=== PATIENT | female | born 1985 | race African-American/Black ===

== ENCOUNTER 2016-08-11 13:36 | Emergency (ER) | payer OTHER ==
[~2016-08-11] VITALS: Ht 175.3 cm; Wt 81.6 kg
[2016-08-11 13:36] VITALS: BP 137/101
[2016-08-11 17:31] LABS: APPEARANCE,URINE Clear (CLEAR); BILIRUBIN,URINE Negative (NEGATIVE); BLOOD, URINE Negative Ery/uL (NEGATIVE); COLOR,URINE Yellow (YELLOW); KETONES,URINE Negative (NEGATIVE); LEUKOCYTE ESTERASE ,URINE Negative (NEGATIVE); NITRITE, URINE Negative (NEGATIVE); PH,URINE 8.5 (5.0-8.0); PROTEIN,URINE 30 mg/dl (NEGATIVE); UGLUCOSE Negative (NEGATIVE)
[2016-08-11 17:33] LABS: PREGNANCY TEST URINE QUAL NEGATIVE (NEGATIVE)
[2016-08-11 17:50] LABS: ADD URINE CULTURE NO; BACTERIA,URINE None seen /HPF (None Seen); RBC,URINE NONE SEEN /HPF (0-2); SQUAMOUS EPITHELIAL CELL,UR Rare /HPF (None Seen); WBC,URINE NONE SEEN /HPF (0-3)
== END 2016-08-11 18:10 | disposition home or self-care (01) ==
LOC: ER 13:41
DX: N83.201 Unspecified ovarian cyst, right side (principal)
CPT/HCPCS: 76856; 81001; 84703; 99285; A4606; Z7610; 81000-TC

== ENCOUNTER 2017-01-25 10:35 | Emergency (ER) | payer OTHER ==
[~2017-01-25] VITALS: Ht 175.3 cm; Wt 81.6 kg
--- NOTE | 2017-01-25 10:53 | NUR ---
PT TO ED ROOM 08. PELVIC CRAMPING X 6 MONTHS, WORSENING YESTERDAY. A.A.O. NAD. VS WNL. SIDE RAISL UP. HOB ELEVATED. URINE SAMPLE COLLECTED FROM PATIENT.
--- NOTE | 2017-01-25 11:27 | NUR ---
US AT BEDSIDE
--- NOTE | 2017-01-25 12:07 | NUR ---
Patient is resting comfortably in bed. VSS.
--- NOTE | 2017-01-25 12:33 | NUR ---
Patient discharged to home in stable condition. Written and verbal after care instructions given. Patient verbalizes understanding of instruction. Pt is ambulatory with a steady gait.
[2017-01-25 12:35] VITALS: BP 134/75
== END 2017-01-25 12:36 | disposition home or self-care (01) ==
LOC: ER 10:43
DX: R10.2 Pelvic and perineal pain (principal)
CPT/HCPCS: 76856-TC; 84703-TC; A4606; Z7610

== ENCOUNTER 2017-11-24 14:58 | Emergency (ER) | payer OTHER ==
[~2017-11-24] VITALS: Ht 175.3 cm; Wt 77.1 kg
--- NOTE | 2017-11-24 15:25 | NUR ---
PATIENT TO ED DT FLANK PAIN AND DYSURIA X 1 WEEK. PATIENT IS AWAKE AND ALERT. NOT IN DISTRESS. AFEBRILE. VSS
[2017-11-24 15:42] LABS: APPEARANCE,URINE Slightly Cloudy (CLEAR); BILIRUBIN,URINE SMALL (NEGATIVE); BLOOD, URINE Large Ery/uL (NEGATIVE); KETONES,URINE Negative (NEGATIVE); LEUKOCYTE ESTERASE ,URINE Small (NEGATIVE); NITRITE, URINE Negative (NEGATIVE); PROTEIN,URINE >=300 mg/dl (NEGATIVE); UGLUCOSE Negative (NEGATIVE); UROBILINOGEN,URINE 0.2 EU/dL (0.2)
--- NOTE | 2017-11-24 15:42 | NUR ---
URINE SAMPLE SENT TO LAB
[2017-11-24 15:44] LABS: COLOR,URINE Dark Yellow (YELLOW)
[2017-11-24 15:52] LABS: BACTERIA,URINE Few /HPF (None Seen); RBC,URINE 50-80 /HPF (0-2); SQUAMOUS EPITHELIAL CELL,UR Few /HPF (None Seen); WBC,URINE 20-50 /HPF (0-3)
[2017-11-24] MEDS ORDERED: ONDANSETRON HCL/PF 4 MG/2 ML VIAL ONE (15:57)
[2017-11-24] MEDS ORDERED: MORPHINE SULFATE INJ 4 MG/ML DISP.SYRIN ONE (15:57)
[2017-11-24] MEDS ORDERED: IV NS 0.9% 1,000 ML BAG IV ONE (16:00)
[2017-11-24] MEDS ORDERED: MORPHINE SULFATE INJ 2 MG/ML DISP.SYRIN IV ONE (16:00)
[2017-11-24] MEDS ORDERED: ONDANSETRON HCL/PF 4 MG/2 ML VIAL IVP ONE (16:00)
[2017-11-24 16:15] LABS: BASOPHILS % (AUTO) 0.9 % (0.0-2.0); HEMATOCRIT 36 % (33-45); HEMOGLOBIN 12.8 g/dL (11.5-14.8); LYMPHOCYTES # (AUTO) 1.8 /CMM (0.8-4.8); LYMPHOCYTES % (AUTO) 33.7 % (20.0-44.0); MEAN CORPUSCULAR HEMOGLOBIN 34 PG (26.0-33.0); MEAN CORPUSCULAR HGB CONC 35 g/dl (31.0-36.0); MEAN CORPUSCULAR VOLUME 96 fL (82-100); MONOCYTES # (AUTO) 0.2 /CMM (0.1-1.30); MONOCYTES % (AUTO) 4.5 % (2.0-12.0); NEUTROPHILS # (AUTO) 3.1 /CMM (1.8-8.9); NEUTROPHILS % (AUTO) 58.9 % (43.0-81.0); PLATELET COUNT (AUTO) 299 /CMM (150-450); RDW COEFFICIENT OF VARIATION 11.5 (11.5-15.0); RED BLOOD CELL COUNT(AUTO) 3.77 MIL/uL (4.0-5.2); WHITE BLOOD COUNT (AUTO) 5.2 K/uL (4.3-11.0)
[2017-11-24 16:27] LABS: CALCIUM, SERUM 9.1 mg/dL (8.5-10.1); CREATININE 0.9 mg/dL (0.6-1.3); POTASSIUM 3.6 mmol/L (3.5-5.1)
[2017-11-24] MEDS ORDERED: CEFTRIAXONE 1GM BAG (ER ONLY) 1 GM/50 ML PIGGYBACK IV ONE (17:30)
[2017-11-24 17:45] VITALS: BP 136/90
--- NOTE | 2017-11-24 18:11 | NUR ---
Patient discharged to home in stable condition. Written and verbal after care instructions given. Patient verbalizes understanding of instruction.IV removed. Catheter intact and site benign. Pressure and 4x4 applied to site. No bleeding noted.
== END 2017-11-24 18:11 | disposition home or self-care (01) ==
LOC: ER 14:59
DX: N12 Tubulo-interstitial nephritis, not specified as acute or chronic (principal); F10.10 Alcohol abuse, uncomplicated; Y90.9 Presence of alcohol in blood, level not specified
CPT/HCPCS: 36415; 80048-TC; 81000-TC; 84703-TC; 85025-TC; 87086-TC; A4606; J0696; J2270; J2405; Z7610

== ENCOUNTER 2018-02-10 17:59 | Emergency (ER) | payer OTHER ==
[~2018-02-10] VITALS: Ht 175.3 cm; Wt 85.7 kg
[2018-02-10 17:59] VITALS: BP 143/95
--- NOTE | 2018-02-10 19:26 | NUR ---
CALLED PT'S NAME THREE TIMES, NO RESPONSE IN THE WAITING ROOM. PT LEFT BEFORE TRIAGE
[2018-02-10 20:36] LABS: BASOPHILS % (AUTO) 0.7 % (0.0-2.0); EOSINOPHILS % (AUTO) 2.6 % (0.0-6.0); HEMATOCRIT 38 % (33-45); HEMOGLOBIN 13.1 g/dL (11.5-14.8); LYMPHOCYTES # (AUTO) 2.6 /CMM (0.8-4.8); LYMPHOCYTES % (AUTO) 51.3 % (20.0-44.0); MEAN CORPUSCULAR HGB CONC 35 g/dl (31.0-36.0); MEAN CORPUSCULAR VOLUME 93 fL (82-100); MONOCYTES # (AUTO) 0.3 /CMM (0.1-1.30); MONOCYTES % (AUTO) 6.9 % (2.0-12.0); NEUTROPHILS # (AUTO) 1.9 /CMM (1.8-8.9); NEUTROPHILS % (AUTO) 38.5 % (43.0-81.0); PLATELET COUNT (AUTO) 342 /CMM (150-450); RDW COEFFICIENT OF VARIATION 11.6 (11.5-15.0); RED BLOOD CELL COUNT(AUTO) 4.06 MIL/uL (4.0-5.2); WHITE BLOOD COUNT (AUTO) 4.9 K/uL (4.3-11.0)
[2018-02-10 20:49] LABS: INR 0.91 (0.85-1.15)
== END 2018-02-10 21:18 | disposition home or self-care (01) ==
LOC: ER 18:02
DX: S70.12XA Contusion of left thigh, initial encounter (principal); X58.XXXA Exposure to other specified factors, initial encounter; Y93.89 Activity, other specified; Y92.89 Other specified places as the place of occurrence of the external cause; Y99.8 Other external cause status
CPT/HCPCS: 36415; 85025; 85730; 99284; A4606; Z7610

== ENCOUNTER 2018-05-21 15:37 | Emergency (ER) | payer OTHER ==
[~2018-05-21] VITALS: Ht 175.3 cm; Wt 80.3 kg
[2018-05-21 16:06] VITALS: BP 140/100
[2018-05-21] MEDS ORDERED: KETOROLAC TROMETHAMINE INJ 30 MG/ML VIAL ONE (16:25)
[2018-05-21] MEDS ORDERED: KETOROLAC TROMETHAMINE INJ 60 MG/2 ML VIAL IM ONE (16:30)
== END 2018-05-21 16:46 | disposition home or self-care (01) ==
LOC: ER 15:41
DX: S46.812A Strain of other muscles, fascia and tendons at shoulder and upper arm level, left arm, initial encounter (principal); W22.8XXA Striking against or struck by other objects, initial encounter; Y93.D9 Activity, other involving arts and handcrafts; Y92.89 Other specified places as the place of occurrence of the external cause; Y99.8 Other external cause status
CPT/HCPCS: 96372; 99283; A4606; J1885; Z7610

== ENCOUNTER 2018-09-02 18:47 | Emergency (ER) | payer OTHER ==
[~2018-09-02] VITALS: Ht 175.3 cm; Wt 83.9 kg
[2018-09-02 19:00] VITALS: BP 146/89
== END 2018-09-02 19:24 | disposition home or self-care (01) ==
LOC: ER 18:50
DX: L50.9 Urticaria, unspecified (principal); F10.10 Alcohol abuse, uncomplicated; Y90.9 Presence of alcohol in blood, level not specified; Z60.2 Problems related to living alone